=== PATIENT | male | born 1955 | race African-American/Black ===

== ENCOUNTER 2018-05-26 00:11 | Emergency (ER) | payer MEDICAID, MEDICARE ==
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
--- NOTE | 2018-05-26 08:53 | Diagnostic Imaging Report ---
Right hand (3 views) HISTORY: Swelling No acute bony abnormalities. No fractures. 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 Significance should be correlated clinically. IMPRESSION: 1. No definite acute bony abnormalities 2. Suggestion of periarticular osteoporosis about all joint spaces. Significance should be correlated clinically.
== END 2018-05-26 02:35 | disposition home or self-care (01) ==
LOC: ER 00:11
DX: M79.89 Other specified soft tissue disorders (principal)
CPT/HCPCS: 73130-TC-RT; Z7502